=== PATIENT | female | born 1985 | race African-American/Black ===

== ENCOUNTER → 2020-04-03 | Outpatient (CLI) | payer OTHER | LOC: RAD 15:33 | PROVIDERS: ATTEND Nurse Practitioner | DX: R07.89 Other chest pain (principal) ==

== ENCOUNTER → 2020-04-03 | Outpatient (CLI) | payer OTHER | LOC: ULTRA 09:37 | PROVIDERS: ATTEND Nurse Practitioner | DX: R10.10 Upper abdominal pain, unspecified (principal) ==